=== PATIENT | male | born 1970 | race Caucasian/White ===

== ENCOUNTER → 2016-10-22 | Outpatient (CLI) | payer BC ==
--- NOTE | 2016-10-22 15:41 | NM ---
EXAMINATION TYPE: NM hepatobiliary w EF DATE OF EXAM: 10/22/2016 COMPARISON: Ultrasound gallbladder 12/21/2015 HISTORY: Right upper quadrant pain, R 10.11 TECHNIQUE: After the intravenous administration of 5.18 mCi Tc 99m Mebrofenin hepatobiliary scintigra phy is performed. Immediate images post injection. FINDINGS: There is satisfactory initial accumulation of tracer by the liver. The gallbladder is visualized wit hin 4 minutes. The small bowel activity is noted within 14 minutes. At one hour 8 ounces of oral en sure plus is given to mimic CCK and gallbladder ejection fraction is calculated at 75 %, in the aury l range. Therefore there is no scintigraphic evidence of cystic or common bile duct obstruction to s uggest acute cholecystitis or gallbladder dyskinesia. IMPRESSION: Exam is within normal limits.
== END ==
LOC: RADNMMAIN 13:09
PROVIDERS: ATTEND Family Medicine
DX: R10.11 Right upper quadrant pain (principal)
CPT/HCPCS: 78226; A9537

== ENCOUNTER 2016-11-13 08:26 | Day surgery (SDC) | payer BC ==
[2016-11-11 11:24] VITALS: BMI 33.6
[~2016-11-13 08:26] MED LIST: LIDOCAINE 1% 20 ML VIAL (10MG/ML) FOR IV START INTRADERMA PRN
[2016-11-13 09:36] VITALS: TEMP 97.7
[2016-11-13] MEDS: LACTATED RINGERS 1,000 ML IV SCH ×2 (09:47→09:56)
--- NOTE | 2016-11-13 09:56 | P.GSHP ---
History of Present Illness H&P Date: 11/13/16 Chief Complaint: GERD Is a 46-year-old male said complaints of epigastric pain and GERD. He presents today for EGD. Past Medical History Past Medical History: GERD/Reflux Additional Past Medical History / Comment(s): having upper left abd pain intermittently with reflux,persistent dull pain rt upper abd History of Any Multi-Drug Resistant Organisms: None Reported Past Surgical History: Orthopedic Surgery Additional Past Surgical History / Comment(s): arthroscopy alvaro knees Past Anesthesia/Blood Transfusion Reactions: No Reported Reaction Additional Past Anesthesia/Blood Transfusion Reaction / Comment(s): no hx blood transfusion Smoking Status: Never smoker - Past Family History Mother Family Medical History: No Reported History Father Family Medical History: No Reported History Medications and Allergies Home Medications Medication Instructions Recorded Confirmed Type Omeprazole [PriLOSEC] 20 mg PO AC-BRKFST PRN 11/11/16 11/13/16 History Allergies Allergy/AdvReac Type Severity Reaction Status Date / Time No Known Allergies Allergy Verified 11/11/16 11:16 Surgical - Exam Vital Signs Temp Pulse Resp BP Pulse Ox 97.7 F 63 18 150/87 97 11/13/16 09:34 11/13/16 09:34 11/13/16 09:34 11/13/16 09:34 11/13/16 09:34 - General well developed, no distress - Eyes PERRL - ENT normal pinna - Neck no masses - Respiratory normal expansion - Cardiovascular Rhythm: regular - Abdomen Abdomen: soft, non tender Assessment and Plan Plan: GERD, epigastric pain. We'll perform EGD.
[2016-11-13] MEDS ORDERED: LIDOCAINE 1% INJ 10MG/ML (20 ML MDV) ONE (09:59)
[2016-11-13] MEDS ORDERED: PROPOFOL 10 MG/ML 20 ML VIAL IV ONE (09:59)
--- NOTE | 2016-11-13 10:11 | P.OP ---
Date of Procedure: 11/13/16 Preoperative Diagnosis: GERD Epigastric pain Postoperative Diagnosis: Mild antral gastritis Procedure(s) Performed: EGD Anesthesia: MAC Surgeon: Milind Tracy Pathology: other (Antrum) Condition: stable Disposition: PACU Description of Procedure: The patient's placed on the endoscopy table in the lateral position. He received IV sedation. The gastroscope placed oropharynx and passed in the esophagus and stomach. Scope was then placed through the pylorus. The first and second portion of the duodenum appeared normal. Scope was then brought back the antrum and this appeared mildly inflamed. The scope was then retroflexed remainder stomach appeared normal. There was no significant hiatal hernia. The GE junction was at 40 cm The distal esophagus appeared normal. The proximal esophagus. Normal. Scope was withdrawn for patient.
[2016-11-13 10:34] VITALS: RESP 16
[2016-11-13 10:36] VITALS: BP 153/90; PULSE 63
== END 2016-11-13 10:51 | disposition home or self-care (01) ==
LOC: ORWHC2ENDO 08:26
PROVIDERS: ATTEND Surgery
DX: K29.50 Unspecified chronic gastritis without bleeding (principal); K21.9 Gastro-esophageal reflux disease without esophagitis; Z79.899 Other long term (current) drug therapy
CPT/HCPCS: 88305; 88342; 43239; J2001; J2704

== ENCOUNTER → 2018-03-25 | Outpatient (CLI) | payer BC ==
--- NOTE | 2018-03-25 15:59 | XR ---
EXAMINATION TYPE: XR cervical spine comp DATE OF EXAM: 03/25/2018 CLINICAL HISTORY: pain COMPARISON: NONE TECHNIQUE: Frontal, lateral, oblique, swimmers, and open mouth view of the cervical spine are obtaine d. FINDINGS: The cervical spine is visualized in its entirety from C1 thru the top of T1 level. It is s atisfactory in alignment without evidence of acute fracture or dislocation. The pre-vertebral soft t issue appears within normal limits. Disc spaces are well preserved. The C1-C2 articulation is unremar kable on the open mouth view. The oblique images are within normal limits. IMPRESSION: No acute fracture or dislocation is seen in the cervical spine.ICD 10 NO FRACTURE, INITI AL EVALUATION
== END | disposition home or self-care (01) ==
LOC: RADXRYALE 15:38
PROVIDERS: ATTEND Physician Assistant Medical
DX: M54.2 Cervicalgia (principal); R20.2 Paresthesia of skin
CPT/HCPCS: 72050

== ENCOUNTER 2019-02-23 15:21 | Emergency (ER) | payer BC ==
[2019-02-23 15:43] VITALS: RESP 20; TEMP 98.1
[2019-02-23] MEDS ORDERED: CEPHALEXIN 500 MG CAP PO STA (15:45)
[2019-02-23] MEDS ORDERED: DIPH,PERTUS(ACELL)TETVAC-LF 0.5 ML VIAL IM ONE (15:45)
[2019-02-23] MEDS ORDERED: LIDOCAINE 1% INJ 10MG/ML (20 ML MDV) SQ ONE (16:19)
--- NOTE | 2019-02-23 16:25 | XR ---
EXAMINATION TYPE: XR finger LT DATE OF EXAM: 02/23/2019 COMPARISON: None HISTORY: Laceration second digit TECHNIQUE: 3 views index finger FINDINGS: There is a fracture of the tuft of the index finger. Some soft tissue injury is present. Zulema int spaces are preserved. IMPRESSION: 1. Fracture of the tuft of the index finger
--- NOTE | 2019-02-23 17:23 | ED ---
Wound/Laceration HPI - General Chief Complaint: Wound/Laceration Stated Complaint: finger lac Time Seen by Provider: 02/23/19 16:19 Source: patient, RN notes reviewed, old records reviewed Mode of arrival: ambulatory Limitations: no limitations - History of Present Illness Initial Comments: 48 year old male with CC of left index finger laceration after it was caught in [employer] system. Patient has full range of motion of DIP and complains of laceration over nailbed. PAtient has diminished sensation to the tip of the finger. - Related Data Home Medications Medication Instructions Recorded Confirmed Omeprazole [PriLOSEC] 20 mg PO AC-BRKFST PRN 11/11/16 11/13/16 Previous Rx's Medication Instructions Recorded Acetaminophen-Codeine 300-30mg 1 tab PO Q4H PRN 3 Days #18 tablet 02/23/19 [Tylenol w/codeine #3] Cephalexin [Keflex] 500 mg PO Q8HR #21 cap 02/23/19 Allergies Allergy/AdvReac Type Severity Reaction Status Date / Time No Known Allergies Allergy Verified 02/23/19 15:42 Review of Systems ROS Statement: Those systems with pertinent positive or pertinent negative responses have been documented in the HPI. ROS Other: All systems not noted in ROS Statement are negative. Past Medical History Past Medical History: No Reported History History of Any Multi-Drug Resistant Organisms: None Reported Past Surgical History: Adenoidectomy, Orthopedic Surgery, Tonsillectomy Additional Past Surgical History / Comment(s): alvaro knees Past Psychological History: No Psychological Hx Reported Smoking Status: Never smoker Past Alcohol Use History: None Reported Past Drug Use History: None Reported General Exam - General Exam Comments Initial Comments: 48 year old male, no distress. Limitations: no limitations General appearance: alert, in no apparent distress Head exam: Present: atraumatic, normocephalic, normal inspection Eye exam: Present: normal appearance, PERRL, EOMI. Absent: scleral icterus, conjunctival injection, periorbital swelling ENT exam: Present: normal exam, mucous membranes moist Neck exam: Present: normal inspection. Absent: tenderness, meningismus, lymphadenopathy Respiratory exam: Present: normal lung sounds bilaterally. Absent: respiratory distress, wheezes, rales, rhonchi, stridor Cardiovascular Exam: Present: regular rate, normal rhythm, normal heart sounds. Absent: systolic murmur, diastolic murmur, rubs, gallop, clicks GI/Abdominal exam: Present: soft, normal bowel sounds. Absent: distended, tenderness, guarding, rebound, rigid Extremities exam: Present: full ROM, normal capillary refill. Absent: normal inspection, tenderness, pedal edema, joint swelling, calf tenderness Left Forearm Wrist exam: Present: normal inspection, full ROM Hand Wrist exam: Present: full ROM, laceration (2cm laceration through nailbed over left index finger and extend to mid pad of finger). Absent: normal inspection, tenderness, swelling, ecchymosis, deformity Neuro motor exam: Present: wrist extension intact, thumb opposition intact Back exam: Present: normal inspection Neurological exam: Present: alert, oriented X3, CN II-XII intact Psychiatric exam: Present: normal affect, normal mood Course Vital Signs 02/23/19 02/23/19 02/23/19 15:39 15:42 16:42 Temperature 98.1 F Pulse Rate 70 65 73 Respiratory 20 20 20 Rate Blood Pressure 132/80 125/75 138/82 O2 Sat by Pulse 98 98 98 Oximetry 02/23/19 17:40 Temperature Pulse Rate Respiratory 20 Rate Blood Pressure O2 Sat by Pulse Oximetry Procedures - Laceration Laceration #1 Site: hand (left index finger ) Size (cm): 2 Description: linear Depth: simple, single layer Anesthetic Used: lidocaine 1% Anesthesia Technique: nerve block Amount (mls): 4 Pre-repair: wound explored, irrigated extensively Type of Sutures: nylon Size of Sutures: 5-0 Number of Sutures: 4 Technique: simple, interrupted Patient Tolerated Procedure: well, no complications Additional Comments: Nail used through naibed to hold distal tip inplace. Medical Decision Making - Medical Decision Making 48 year old male with left index finger laceration and crushing injury after stuck in [employer] system. Patient has distal tuft fracture. Given Tdap, IM kefzol. Patient had nerve block and 4 sutures placed, one through nailbed holding distal tip up. Patient placed in splint. Discussed for close follow up with orthopedic. Discussed return parameters. - Radiology Data Radiology results: report reviewed Fracture of the tuft of the index finger. Disposition Clinical Impression: Open fracture of tuft of distal phalanx of finger Disposition: HOME SELF-CARE Condition: Good Instructions (If sedation given, give patient instructions): Finger Fracture (ED) Additional Instructions: Patient is a follow-up tomorrow with biomedical equipment specialist. Take antibiotics as prescribed. Keep the splint on. Please leave wound covered for the first 24- 48 hours and then leave open to air after that time. Please use clean soap and water to clean the suture area to prevent scabbing over the top of your sutures. Please watch for any signs of infection which may include but not limited to increased pain, swelling, redness, fever or chills. Please return to the emergency room if any signs of infection do occur. Please return to the emergency room for any other concerns or complications. Prescriptions: Cephalexin [Keflex] 500 mg PO Q8HR #21 cap Acetaminophen-Codeine 300-30mg [Tylenol w/codeine #3] 1 tab PO Q4H PRN 3 Days #18 tablet PRN Reason: Pain Is patient prescribed a controlled substance at d/c from ED?: No Referrals: John Champion DO [Primary Care Provider] - 1-2 days Boubacar Wong DO [Doctor of Osteopathic Medicine] - 1-2 days Larry Cisneros DO [Medical Doctor] - 1-2 days Time of Disposition: 17:19
[2019-02-23 17:40] VITALS: BP 138/82; PULSE 73
== END 2019-02-23 17:41 | disposition home or self-care (01) ==
LOC: EC 15:21
DX: S62.631B Displaced fracture of distal phalanx of left index finger, initial encounter for open fracture (principal); Z23 Encounter for immunization; W31.89XA Contact with other specified machinery, initial encounter; Y92.009 Unspecified place in unspecified non-institutional (private) residence as the place of occurrence of the external cause
CPT/HCPCS: 73140; 90715; 99283; 12001; 90471; J2001

== ENCOUNTER → 2020-05-08 | Outpatient (CLI) | payer BC ==
--- NOTE | 2020-05-08 11:21 | XR ---
EXAMINATION TYPE: XR lumbosacral spine min 4V DATE OF EXAM: 05/08/2020 CLINICAL HISTORY: pain COMPARISON: NONE TECHNIQUE: Frontal, lateral, and oblique images of the lumbar spine are obtained. FINDINGS: There are 5 lumbar type vertebral bodies identified. The lumbar spine shows satisfactory alignment without evidence of acute fracture or dislocation. There is mild loss of height involving t he superior endplate of T12 uncertain age and/or etiology. Mild degenerative disc space narrowing and spondylosis identified. The overlying soft tissue appears unremarkable. IMPRESSION: There is mild loss of height involving the superior endplate of T12 uncertain age and/or etiology. Mild degenerative disc space narrowing and spondylosis identified.
== END | disposition home or self-care (01) ==
LOC: RADXRYALE 10:46
PROVIDERS: ATTEND Physician Assistant Medical
DX: M51.36 Other intervertebral disc degeneration, lumbar region (principal); M47.816 Spondylosis without myelopathy or radiculopathy, lumbar region
CPT/HCPCS: 72110

== ENCOUNTER → 2021-05-03 | Outpatient (CLI) | payer BC ==
--- NOTE | 2021-05-03 11:02 | XR ---
EXAMINATION TYPE: XR lumbosacral spine min 4V DATE OF EXAM: 05/03/2021 CLINICAL HISTORY: pain COMPARISON: NONE TECHNIQUE: Frontal, lateral, and oblique images of the lumbar spine are obtained. FINDINGS: There are 5 lumbar type vertebral bodies identified. The lumbar spine shows satisfactory alignment without evidence of acute fracture or dislocation. Vertebral body heights are within normal limits. Moderate multilevel degenerative disc space narrowing and spondylosis. The overlying soft tissue appears unremarkable. IMPRESSION: No acute fracture or dislocation is seen in the lumbar spine.ICD 10 NO FRACTURE, INITIAL EVALUATION
== END | disposition home or self-care (01) ==
LOC: RADXRYALE 10:37
PROVIDERS: ATTEND Physician Assistant Medical
DX: M54.41 Lumbago with sciatica, right side (principal)
CPT/HCPCS: 72110